=== PATIENT | female | born 1995 | race African-American/Black ===

== ENCOUNTER 2021-08-17 00:51 | Emergency (ER) | payer MEDICAID ==
[~2021-08-17] VITALS: Ht 167.6 cm; Wt 53.5 kg
[~2021-08-17 00:51] MED LIST: IBUP-1636
[2021-08-17] MEDS ORDERED: MORPHINE SULFATE 4 MG/ML CPJ (NOT FOR IM USE) IV STA (03:17)
[2021-08-17 04:00] LABS: BASOPHILS % 0.8 % (0.0-2.0); EOSINOPHILS % 2.9 % (0.0-5.0); HEMATOCRIT. 31.9 % (36.0-48.0); HEMOGLOBIN. 10.2 g/dL (12.0-16.0); LYMPHOCYTES % 7.6 % (20.0-50.0); MEAN CORPUSCULAR HEMOGLOBIN 24.1 pg (28.0-32.0); MEAN CORPUSCULAR VOLUME 75.4 fL (81.0-99.0); MEAN PLATELET VOLUME 7.9 fl (7.4-10.4); MONOCYTES % 7.4 % (2.0-8.0); NEUTROPHILS % 81.3 % (40.0-76.0); RED BLOOD CELL COUNT 4.23 mill/uL (4.2-5.4); RED CELL DISTRIBUTION WIDTH 17.6 % (11.6-14.6)
[2021-08-17 04:07] LABS: CHLORIDE 101 mEq/L (98-107)
[2021-08-17 04:17] LABS: HCG SCREEN NEGATIVE
[2021-08-17] MEDS ORDERED: IOHEXOL-350 100 ML BOTTLE ONE (05:16)
[2021-08-17] MEDS ORDERED: LEVO500T89 MT (05:23)
[2021-08-17] MEDS ORDERED: IBUP-2028 MT (05:25)
[2021-08-17 05:30] VITALS: BP 126/84
[2021-08-17 07:56] LABS: PLATELET ESTIMATE MARKEDLY INCREASED
[2021-08-17 07:57] LABS: PLATELET 1140 x1000/uL (130-400)
== END 2021-08-17 05:46 | disposition home or self-care (01) ==
LOC: ER 00:51
DX: J18.1 Lobar pneumonia, unspecified organism (principal); J45.909 Unspecified asthma, uncomplicated; Z79.899 Other long term (current) drug therapy
CPT/HCPCS: 36415; 71045; 71275; 80053; 81025; 84484; 84703; 85025; 93005; 99285; Q9967